=== PATIENT | female | born 1995 | race Caucasian/White ===

== ENCOUNTER 2017-01-15 21:47 | Emergency (ER) | payer SELFPAY ==
[~2017-01-15] VITALS: Ht 162.6 cm; Wt 113.6 kg
[~2017-01-15 21:47] MED LIST: LORA-441 PO
[2017-01-15 22:20] VITALS: Ht 162.6 cm; Wt 113.6 kg
[2017-01-15] MEDS ORDERED: METHYLPREDNISOLONE 125 MG INJ IM STA (23:21)
[2017-01-15] MEDS ORDERED: LEVALBUTEROL (NEB) 1.25 MG/0.5 ML AMP INH STA (23:21)
[2017-01-15] MEDS ORDERED: IPRATROPIUM (NEB) 0.5 MG/2.5 ML AMP NEB STA (23:21)
[2017-01-15] MEDS ORDERED: ACETAMINOPHEN 325 MG TAB PO ONE (23:30)
--- NOTE | 2017-01-15 23:33 | ERD ---
ER Documentation Chief Complaint Date/Time DATE: 01/15/17 TIME: 23:30 Chief Complaint COUGH AND HEADACHE TODAY. HPI 21-year-old female presents here in emergency department for complaints of cough , headache, on and off wheezing and shortness of breath started today. Patient has been having dry cough, patient does not involve any phlegm or blood. Patient denies any sick contacts. Patient did not take any medications to help with symptoms. Patient's complain of headache, throbbing pain, 4/10 scale, not better or worse with anything. Patient did not take any medications up with symptoms. ROS All systems reviewed and are negative except as per history of present illness. Medications Home Meds Active Scripts Lorazepam* (Ativan*) 0.5 Mg Tablet, 0.5 MG PO Q8, #10 TAB Prov:CLAUDIO COLINDRES Junior 11/01/15 Allergies Allergies: Coded Allergies: No Known Drug Allergies (Verified Allergy, Unknown, 11/10/14) PMhx/Soc Medical and Surgical Hx: pt denies Medical Hx, pt denies Surgical Hx History of Surgery: No Anesthesia Reaction: No Hx Neurological Disorder: No Hx Respiratory Disorders: No Hx Cardiac Disorders: Yes (HTN ) Hx Psychiatric Problems: No Hx Miscellaneous Medical Probl: No Hx Alcohol Use: No Hx Substance Use: No Hx Tobacco Use: No Smoking Status: Never smoker FmHx Family History: No coronary disease, No diabetes, No other Physical Exam Vitals Vital Signs Date Time Temp Pulse Resp B/P Pulse Ox O2 Delivery O2 Flow Rate FiO2 01/16/17 00:32 109 22 98 21 01/15/17 22:20 97.8 124 22 147/87 96 Physical Exam GENERAL: The patient is well developed and appropriate for usual state of health, in no apparent distress. CHEST: Bilateral lungs noted to be diminished with wheezing. There are no rales , crackles or rhonchi. HEART: Heart rate at 104 bpm regular rhythm. No murmurs, clicks, rubs or gallops. No S3 or S4. ABDOMEN: Soft, nontender and nondistended. Good bowel sounds. No rebound or guarding. No gross peritonitis. No gross organomegaly or masses. No Cruz sign or McBurney point tenderness. BACK: No midline or flank tenderness. EXTREMITIES: Equal pulses bilaterally. There is no peripheral clubbing, cyanosis or edema. No focal swelling or erythema. Full range of motion. Grossly neurovascularly intact. NEURO: Alert and oriented. Cranial nerves 2-12 intact. Motor strength in all 4 extremities with 5/5 strength. Sensation grossly intact. Normal speech and gait. SKIN: There is no apparent rash or petechia. The skin is warm and dry. HEMATOLOGIC AND LYMPHATIC: There is no evidence of excessive bruising or lymphedema. No gross cervical, axillary, or inguinal lymphadenopathy. Results 24 hrs Current Medications Medications (Trade) Dose Ordered Sig/[place] Route PRN Reason Start Time Stop Time Status Last Admin Dose Admin Ipratropium [place] (Atrovent 0.02% (Neb)) 0.5 mg ONCE STAT NEB 01/15/17 23:21 01/15/17 23:22 DC 01/16/17 00:27 Levalbuterol (Xopenex Neb) 5 mg ONCE STAT INH 01/15/17 23:21 01/15/17 23:22 DC 01/16/17 00:27 Methylprednisolone Sodium Succinate (Solu-Medrol) 125 mg ONCE STAT IM 01/15/17 23:21 01/15/17 23:22 DC 01/15/17 23:35 Acetaminophen (Tylenol Tab) 650 mg ONCE ONCE PO 01/15/17 23:30 01/15/17 23:31 DC 01/15/17 23:35 Breathing treatment of Xopenex, Atrovent, Solu-Medrol IM was given here in emergency department, after treatment, patient's lungs sounds are clear and patient's oxygenation is better. Patient verbalized feeling much better.Patient was given medication for pain here in emergency department, after treatment, patient verbalized feeling much better. Patient's pain is improved. . EKG was done, read by me and is normal sinus rhythm at a rate of 92, normal axis , there is no ST changes or changes in the EKG that indicates any cardiac emergencies at this time. Patient's EKG was also reviewed by Dr. Ahuja. Impression: no acute findings on EKG PROCEDURE: Chest. CLINICAL INDICATION: Asthma exacerbation. TECHNIQUE: Single frontal view of the chest was obtained. COMPARISON: 11/01/2015. FINDINGS: The cardiac silhouette is within normal limits. The aortic arch is unremarkable. There is no focal consolidation, vascular congestion or pleural effusion. There is no pneumothorax. IMPRESSION: No evidence for active cardiopulmonary disease. .Jorge Rogers MD, MD Date Time Electronically viewed and signed by .Jorge Rogers MD, MD on 01/16/2017 00:38 .T/ CC: SHIRIN OLEA [employer] Procedures/MDM Medical Decision Making: Patient symptoms are most likely consistent with acute bronchitis, which viral in origin. There is low suspicion for Pneumonia at this time since patients lungs sounds are clear, patient O2 saturation is normal and patient doesnt show any respiratory distress. Patients chest xray doesnt show infiltrates or any other cardiopulmonary emergencies at this time. There is low suspicion for other cardiopulmonary emergencies at this time such as CHF, Pulmonary Embolism, Pneumothorax, Aortic Aneurysm or any other cardiopulmonary emergencies at this time. There is low suspicion for sepsis. Patient appears well and is hemodynamically stable. Fever is controlled with medicines. Heart rate improved to 92 bpm after reassessment. Disposition: Home. Condition: Stable Prescriptions: Prednisone, guaifenesin with codeine, Zyrtec, ibuprofen, albuterol Instructions: Patient is advised to take medications as prescribed. Patient is advised to rest. Patient advised to increase fluid intake, do humidifier at home and if possible, do salt water gargles. Patient is advised that if symptoms are worse, shortness of breath, uncontrolled fever, stridor, vomiting, worst signs and symptoms to return to emergency department immediately. Otherwise, patient is advised to follow up with primary doctor in 5-7 days. Departure Diagnosis: Primary Impression: Acute bronchitis Bronchitis organism: unspecified organism Qualified Code: J20.9 - Acute bronchitis, unspecified organism Condition: Stable Patient Instructions: Bronchitis With Wheezing (Adult) Additional Instructions: Patient is advised to take medications as prescribed. Patient is advised to rest. Patient advised to increase fluid intake, do humidifier at home and if possible, do salt water gargles. Patient is advised that if symptoms are worse, shortness of breath, uncontrolled fever, stridor, vomiting, worst signs and symptoms to return to emergency department immediately. Otherwise, patient is advised to follow up with primary doctor in 5-7 days. SHIRIN OLEA NP Jan 15, 2017 23:33
--- NOTE | 2017-01-16 00:39 | RADRPT ---
PROCEDURE: Chest. CLINICAL INDICATION: Asthma exacerbation. TECHNIQUE: Single frontal view of the chest was obtained. COMPARISON: 11/01/2015. FINDINGS: The cardiac silhouette is within normal limits. The aortic arch is unremarkable. There is no focal consolidation, vascular congestion or pleural effusion. There is no pneumothorax. IMPRESSION: No evidence for active cardiopulmonary disease. .Jorge Rogers MD, Date Time Electronically viewed and signed by .Jorge Rogers MD, on 01/16/2017 00:38 .T/
[2017-01-16] MEDS ORDERED: CETI10CA PO (01:03)
[2017-01-16] MEDS ORDERED: GUAI473L22 PO (01:03)
[2017-01-16] MEDS ORDERED: IBUP-1542 PO (01:03)
[2017-01-16] MEDS ORDERED: ALBU8.5H3 INH (01:03)
[2017-01-16] MEDS ORDERED: PRED50TA PO (01:03)
[2017-01-16 01:25] VITALS: BP 132/84; PULSE 96; RESP 19; TEMP 97.7
== END 2017-01-16 01:26 | disposition home or self-care (01) ==
LOC: FTE 21:47
DX: J20.9 Acute bronchitis, unspecified (principal); I10 Essential (primary) hypertension
CPT/HCPCS: 71010; 93005; 94644; 96372; 99284; J2930

== ENCOUNTER 2018-12-29 22:54 | Emergency (ER) | payer SELFPAY ==
[~2018-12-29] VITALS: Ht 162.6 cm; Wt 125.0 kg
[~2018-12-29 22:54] MED LIST changes: +ALBU8.5H8 INH; +CETI10CA PO; +GUAI473L22 PO; +IBUP-1542 PO; +PRED50TA PO
[2018-12-29 22:56] VITALS: BP 123/72; PULSE 88; RESP 16; Ht 162.6 cm; Wt 125.0 kg
== END 2018-12-30 01:20 | disposition left against medical advice (07) ==
LOC: FTE 22:54
DX: Z53.21 Procedure and treatment not carried out due to patient leaving prior to being seen by health care provider (principal)